=== PATIENT | female | born 1980 | race Caucasian/White ===

== ENCOUNTER 2019-02-08 08:17 | Emergency (ER) | payer MEDICAID ==
[~2019-02-08] VITALS: Ht 165.1 cm; Wt 94.3 kg
[~2019-02-08 08:17] MED LIST: ALBUTEROL INHALER
[2019-02-08 08:21] VITALS: BP 161/91
[2019-02-08 09:23] VITALS: BP 145/82
== END 2019-02-08 09:16 | disposition home or self-care (01) ==
LOC: MED 08:17
DX: J30.9 Allergic rhinitis, unspecified (principal); J45.909 Unspecified asthma, uncomplicated; Z79.899 Other long term (current) drug therapy
CPT/HCPCS: 99283